=== PATIENT | female | born 1970 | race Caucasian/White ===

== ENCOUNTER → 2023-07-17 16:23 | Outpatient (REF) | payer BC, SELFPAY | LOC: RAD 16:23 | PROVIDERS: ATTENDING PHYSICIAN Obstetrics & Gynecology; FAMILY PHYSICIAN Family Medicine | DX: N95.0 Postmenopausal bleeding (principal); Z79.890 Hormone replacement therapy | CPT/HCPCS: 76830; 76856 ==

== ENCOUNTER → 2023-09-01 11:17 | Outpatient (REF) | payer BC, SELFPAY | LOC: CPAP 11:17 | PROVIDERS: ATTENDING PHYSICIAN Obstetrics & Gynecology | DX: N95.0 Postmenopausal bleeding (principal) | CPT/HCPCS: 88305 ==